=== PATIENT | female | born 1930 | race Caucasian/White ===

== ENCOUNTER 2017-09-24 12:19 | Emergency (ER) | payer MEDICARE, OTHER ==
[2017-09-24 12:24] VITALS: RESP 16
--- NOTE | 2017-09-24 12:32 | ED ---
General Adult HPI - General Chief complaint: Fall Stated complaint: Fall Time Seen by Provider: 09/24/17 12:26 Source: patient, EMS, RN notes reviewed Mode of arrival: EMS Limitations: no limitations - History of Present Illness Initial comments: Patient is a pleasant 87-year-old female presenting to the emergency department following a fall. Patient states a friend was trying to hug her and she did not want to be hug. Patient backed up and fell backwards. Patient believes she may have landed on her back however has no back pain. Patient complains of discomfort mostly of the left wrist and somewhat of the left upper arm. Discomfort increases with movement. No chest pain or dyspnea. No head injury or loss of consciousness. No neck or back pain. Patient was able to walk. - Related Data Home Medications Medication Instructions Recorded Confirmed Aspirin 81 mg PO DAILY@0900 01/30/14 09/24/17 ALPRAZolam [Xanax] 0.5 mg PO HS@209912/03/14 09/24/17 Acetaminophen Tab [Tylenol] 650 mg PO BID 12/03/14 09/24/17 Bisacodyl [Dulcolax] 20 mg PO HS@209912/03/14 09/24/17 Citalopram Hydrobromide [CeleXA] 20 mg PO DAILY@89912/03/14 09/24/17 Atorvastatin [Lipitor] 40 mg PO HS@209904/24/15 09/24/17 Cholecalciferol [Vitamin D3] 1,000 unit PO DAILY@89904/24/15 09/24/17 HYDROcodone/APAP 5-325MG [[place] 0.5 tab PO DAILY@89904/24/15 09/24/17 5-325] Isosorbide Mononitrate ER [Imdur] 30 mg PO DAILY@89904/24/15 09/24/17 Levothyroxine Sodium [Synthroid] 50 mcg PO PERALTA@89904/24/15 09/24/17 ALPRAZolam [Xanax] 0.25 mg PO DAILY PRN 09/24/17 09/24/17 Acetaminophen [Tylenol] 650 mg PO Q4H PRN 09/24/17 09/24/17 Ferrous Sulfate [Iron] 325 mg PO DAILY@89909/24/17 09/24/17 Furosemide [Lasix] 40 mg PO MOWEFR@0909/24/17 09/24/17 Gabapentin [Neurontin] 600 mg PO HS@209909/24/17 09/24/17 HYDROcodone/APAP 5-325MG [[place] 1 tab PO Q8H PRN 09/24/17 09/24/17 5-325] Ipratropium-Albuterol Nebulize 3 ml INHALATION RT-Q4H PRN 09/24/17 09/24/17 [Duoneb 0.5 mg-3 mg/3 ml Soln] Levothyroxine Sodium [Synthroid] 100 mcg PO MOTUWETHFRSA@0909/24/17 09/24/17 Losartan Potassium [Cozaar] 100 mg PO DAILY@89909/24/17 09/24/17 Magnesium Hydroxide [Milk of 2,400 mg PO HS PRN 09/24/17 09/24/17 Magnesia] Memantine HCl [Namenda Xr] 14 mg PO DAILY@0909/24/17 09/24/17 Methyl Salicylate/Menthol 1 patch TOPICAL DAILY@89909/24/17 09/24/17 [Salonpas Patch] Metoprolol Tartrate [Lopressor] 25 mg PO BID@0900,209909/24/17 09/24/17 Nitroglycerin Sl Tabs [Nitrostat] 0.4 mg SUBLINGUAL Q5M PRN 09/24/17 09/24/17 Omeprazole [PriLOSEC] 20 mg PO DAILY@0909/24/17 09/24/17 Oseltamivir Phosphate [Tamiflu] 30 mg PO DIRECTED 09/24/17 09/24/17 Polyethylene Glycol 3350 [Miralax] 17 gm PO DAILY@0909/24/17 09/24/17 Vit C/E/Zn/Coppr/Lutein/Zeaxan 1 cap PO DAILY@0909/24/17 09/24/17 [Preservision Areds 2 Softgel] amLODIPine [Norvasc] 5 mg PO HS@2100 09/24/17 09/24/17 Previous Rx's Medication Instructions Recorded Ipratropium-Albuterol Nebulize 3 ml INHALATION RT-QID ampul.neb 12/08/14 [Duoneb 0.5 mg-3 mg/3 ml Soln] Allergies Allergy/AdvReac Type Severity Reaction Status Date / Time zolpidem tartrate Allergy Unknown Confusion Verified 09/24/17 12:49 [From Ambien] celecoxib [From Celebrex] Allergy Rash/Hives Verified 09/24/17 12:49 estrogens, conjugated Allergy Unknown Verified 09/24/17 12:49 [From Premarin] valdecoxib Allergy Unknown Verified 09/24/17 12:49 Review of Systems ROS Statement: Those systems with pertinent positive or pertinent negative responses have been documented in the HPI. ROS Other: All systems not noted in ROS Statement are negative. Constitutional: Denies: fever Eyes: Denies: eye pain ENT: Denies: ear pain Respiratory: Denies: cough Cardiovascular: Denies: chest pain Endocrine: Denies: fatigue Gastrointestinal: Denies: abdominal pain Genitourinary: Denies: dysuria Musculoskeletal: Denies: back pain Skin: Denies: rash Neurological: Denies: weakness Past Medical History Past Medical History: Coronary Artery Disease (CAD), Chest Pain / Angina, Heart Failure, COPD, CVA/TIA, GERD/Reflux, Hyperlipidemia, Hypertension, Myocardial Infarction ([place]), Pneumonia, Sleep Apnea/CPAP/BIPAP, Thyroid Disorder, Vascular Disorder Additional Past Medical History / Comment(s): CVA 2010 POSTMENOPAUSAL GLASSES UPPER DENTURES SHORTNESS OF BREATH ddd, vit d-deficiency.ischemic cardiomyopathy , hypothyroidism constipation CK D vitamin D deficiency obstructive sleep apnea noncompliant to medication ischemic cardiomyopathy LVH TIA 2010 CVA Last Myocardial Infarction Date:: 2011? 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 Past Anesthesia/Blood Transfusion Reactions: No Reported Reaction Past Psychological History: Anxiety Smoking Status: Former smoker Past Alcohol Use History: Rare Past Drug Use History: None Reported - Past Family History Father Family Medical History: Cancer (Father at age of 60 from throat cancer), Osteoarthritis (OA) Additional Family Medical History / Comment(s): at age 62 throat ca Mother Family Medical History: Coronary Artery Disease (CAD) (Mother at age of 92 from myocardial infarction), Myocardial Infarction ([place]) Additional Family Medical History / Comment(s): mom at age 92 mi Brother(s) Family Medical History: CVA/TIA (Patient has 3 brothers one of them was diagnosed with a CVA.) Sister(s) Family Medical History: No Reported History (Patient had 3 sisters.) Daughter(s) Family Medical History: Vascular Disorder (Patient has a living daughter who survived a ruptured aneurysm of the brain, with subarachnoid hemorrhage.) General Exam Limitations: no limitations General appearance: alert, in no apparent distress Head exam: Present: atraumatic, normocephalic Eye exam: Present: normal appearance, PERRL ENT exam: Present: normal oropharynx Neck exam: Present: normal inspection. Absent: tenderness Respiratory exam: Present: normal lung sounds bilaterally Cardiovascular Exam: Present: regular rate, normal rhythm Expanded Peripheral pulses: 2+: Radial (L) GI/Abdominal exam: Present: soft. Absent: tenderness Extremities exam: Present: tenderness (tenderness and deformity left wrist. Mild tenderness left humerus region.) Back exam: Present: normal inspection. Absent: tenderness, vertebral tenderness Neurological exam: Present: alert, CN II-XII intact. Absent: motor sensory deficit Expanded Motor strength exam: RLE: 5, LLE: 5 Psychiatric exam: Present: normal affect, normal mood Skin exam: Absent: rash Course Vital Signs 09/24/17 12:21 Temperature 97.4 F L Pulse Rate 53 L Respiratory 16 Rate Blood Pressure 190/78 O2 Sat by Pulse 95 Oximetry Procedures - Orthopedic Splinting/Casting Injury #1 Side: left Upper Extremity Injury Location: short arm, wrist Upper Extremity Immobilizer: volar splint Additional Comments: examined postplacement with acceptable alignment and neurovascular intact. Medical Decision Making - Radiology Data Radiology results: image reviewed (Left humerus x-ray shows no acute process. Left wrist x-ray shows distal radius and ulnar fracture.) Disposition Clinical Impression: Fall, Closed fracture distal radius and ulna Disposition: HOME SELF-CARE Condition: Stable Instructions: Arm Fracture in Adults (ED) Additional Instructions: please follow-up with orthopedics in the next couple days for recheck and casting. Return for arm problems, other areas of injury or concern or worsening symptoms.ice to affected area. Referrals: Amber Reed MD [Primary Care Provider] - 1-2 days Jaylen Barroso MD [STAFF PHYSICIAN] - 1-2 days Time of Disposition: 13:40
--- NOTE | 2017-09-24 13:13 | XR ---
EXAMINATION TYPE: XR humerus LT DATE OF EXAM: 09/24/2017 COMPARISON: NONE HISTORY: Pain TECHNIQUE: 2 views FINDINGS: I see no fracture nor dislocation. Elbow joint and shoulder joint appear intact. IMPRESSION: Negative left humerus exam.
--- NOTE | 2017-09-24 13:16 | XR ---
EXAMINATION TYPE: XR wrist complete LT DATE OF EXAM: 09/24/2017 COMPARISON: NONE HISTORY: Pain. Fall. TECHNIQUE: 3 views FINDINGS: There is impacted comminuted transverse fracture of the distal radial metaphysis. There is also nondisplaced fracture ulnar styloid process. There is no dislocation. There is moderate spurring at the first carpometacarpal joint. IMPRESSION: Fractures of distal radius and ulna.
[2017-09-24] MEDS ORDERED: HYDROcodone/APAP 5-325MG 1 EACH TAB PO STA (13:38)
[2017-09-24 13:45] VITALS: BP 160/73; PULSE 56; TEMP 98
== END 2017-09-24 14:02 | disposition home or self-care (01) ==
LOC: EC 12:19
DX: S52.502A Unspecified fracture of the lower end of left radius, initial encounter for closed fracture (principal); S52.602A Unspecified fracture of lower end of left ulna, initial encounter for closed fracture; I25.10 Atherosclerotic heart disease of native coronary artery without angina pectoris; I11.0 Hypertensive heart disease with heart failure; I50.9 Heart failure, unspecified; E78.5 Hyperlipidemia, unspecified; G47.30 Sleep apnea, unspecified; E07.9 Disorder of thyroid, unspecified; I25.2 Old myocardial infarction; I25.5 Ischemic cardiomyopathy; F41.9 Anxiety disorder, unspecified; Z86.73 Personal history of transient ischemic attack (TIA), and cerebral infarction without residual deficits; Z87.891 Personal history of nicotine dependence; Z79.82 Long term (current) use of aspirin; Z79.899 Other long term (current) drug therapy; Z88.6 Allergy status to analgesic agent; Z88.8 Allergy status to other drugs, medicaments and biological substances; W18.39XA Other fall on same level, initial encounter; Y92.009 Unspecified place in unspecified non-institutional (private) residence as the place of occurrence of the external cause
CPT/HCPCS: 29125; 99283

== ENCOUNTER 2017-12-12 04:28 | Emergency (ER) | payer MEDICARE, OTHER ==
[2017-12-12 04:37] VITALS: TEMP 98.3
[2017-12-12] MEDS ORDERED: MORPHINE SULFATE/PF 10MG/10ML VL IVP STA (04:37)
--- NOTE | 2017-12-12 04:40 | ED ---
General Adult HPI - General Chief complaint: Fall Stated complaint: Fall-shoulder pain Time Seen by Provider: 12/12/17 04:31 Source: patient, EMS, RN notes reviewed, old records reviewed Mode of arrival: EMS - History of Present Illness Initial comments: 87-year-old female presents status post fall. Patient is presented from the halfway, according to staff she rolled out of bed falling onto her left side. She is complaining of left shoulder and left wrist pain. No significant head trauma noted, patient denies loss consciousness although she does have history of dementia. Denies any chest pain or abdominal pain. Patient is not on any anticoagulation. Denies current head or neck pain. - Related Data Home Medications Medication Instructions Recorded Confirmed Aspirin 81 mg PO DAILY@89901/30/14 09/24/17 ALPRAZolam [Xanax] 0.5 mg PO HS@209912/03/14 09/24/17 Acetaminophen Tab [Tylenol] 650 mg PO BID 12/03/14 09/24/17 Bisacodyl [Dulcolax] 20 mg PO HS@209912/03/14 09/24/17 Citalopram Hydrobromide [CeleXA] 20 mg PO DAILY@89912/03/14 09/24/17 Atorvastatin [Lipitor] 40 mg PO HS@209904/24/15 09/24/17 Cholecalciferol [Vitamin D3] 1,000 unit PO DAILY@89904/24/15 09/24/17 HYDROcodone/APAP 5-325MG [[place] 0.5 tab PO DAILY@89904/24/15 09/24/17 5-325] Isosorbide Mononitrate ER [Imdur] 30 mg PO DAILY@89904/24/15 09/24/17 Levothyroxine Sodium [Synthroid] 50 mcg PO PERALTA@89904/24/15 09/24/17 ALPRAZolam [Xanax] 0.25 mg PO DAILY PRN 09/24/17 09/24/17 Acetaminophen [Tylenol] 650 mg PO Q4H PRN 09/24/17 09/24/17 Ferrous Sulfate [Iron] 325 mg PO DAILY@89909/24/17 09/24/17 Furosemide [Lasix] 40 mg PO MOWEFR@89909/24/17 09/24/17 Gabapentin [Neurontin] 600 mg PO HS@209909/24/17 09/24/17 HYDROcodone/APAP 5-325MG [[place] 1 tab PO Q8H PRN 09/24/17 09/24/17 5-325] Ipratropium-Albuterol Nebulize 3 ml INHALATION RT-Q4H PRN 09/24/17 09/24/17 [Duoneb 0.5 mg-3 mg/3 ml Soln] Levothyroxine Sodium [Synthroid] 100 mcg PO MOTUWETHFRSA@0909/24/17 09/24/17 Losartan Potassium [Cozaar] 100 mg PO DAILY@0909/24/17 09/24/17 Magnesium Hydroxide [Milk of 2,400 mg PO HS PRN 09/24/17 09/24/17 Magnesia] Memantine HCl [Namenda Xr] 14 mg PO DAILY@0909/24/17 09/24/17 Methyl Salicylate/Menthol 1 patch TOPICAL DAILY@89909/24/17 09/24/17 [Salonpas Patch] Metoprolol Tartrate [Lopressor] 25 mg PO BID@0900,209909/24/17 09/24/17 Nitroglycerin Sl Tabs [Nitrostat] 0.4 mg SUBLINGUAL Q5M PRN 09/24/17 09/24/17 Omeprazole [PriLOSEC] 20 mg PO DAILY@0909/24/17 09/24/17 Oseltamivir Phosphate [Tamiflu] 30 mg PO DIRECTED 09/24/17 09/24/17 Polyethylene Glycol 3350 [Miralax] 17 gm PO DAILY@0909/24/17 09/24/17 Vit C/E/Zn/Coppr/Lutein/Zeaxan 1 cap PO DAILY@0900 09/24/17 09/24/17 [Preservision Areds 2 Softgel] amLODIPine [Norvasc] 5 mg PO HS@209909/24/17 09/24/17 Previous Rx's Medication Instructions Recorded Ipratropium-Albuterol Nebulize 3 ml INHALATION RT-QID ampul.neb 12/08/14 [Duoneb 0.5 mg-3 mg/3 ml Soln] HYDROcodone/APAP 5-325MG [[place] 1 tab PO Q6HR PRN #24 tab 12/12/17 5-325] Allergies Allergy/AdvReac Type Severity Reaction Status Date / Time zolpidem tartrate Allergy Unknown Confusion Verified 09/24/17 12:49 [From Ambien] celecoxib [From Celebrex] Allergy Rash/Hives Verified 09/24/17 12:49 estrogens, conjugated Allergy Unknown Verified 09/24/17 12:49 [From Premarin] valdecoxib Allergy Unknown Verified 09/24/17 12:49 Review of Systems ROS Statement: Those systems with pertinent positive or pertinent negative responses have been documented in the HPI. ROS Other: All systems not noted in ROS Statement are negative. Past Medical History Past Medical History: Coronary Artery Disease (CAD), Chest Pain / Angina, Heart Failure, COPD, CVA/TIA, GERD/Reflux, Hyperlipidemia, Hypertension, Myocardial Infarction ([place]), Pneumonia, Sleep Apnea/CPAP/BIPAP, Thyroid Disorder, Vascular Disorder Additional Past Medical History / Comment(s): CVA 2010 POSTMENOPAUSAL GLASSES UPPER DENTURES SHORTNESS OF BREATH ddd, vit d-deficiency.ischemic cardiomyopathy , hypothyroidism constipation CK D vitamin D deficiency obstructive sleep apnea noncompliant to medication ischemic cardiomyopathy LVH TIA 2010 CVA Last Myocardial Infarction Date:: 2011? 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 Past Anesthesia/Blood Transfusion Reactions: No Reported Reaction Past Psychological History: Anxiety Smoking Status: Former smoker Past Alcohol Use History: Rare Past Drug Use History: None Reported - Past Family History Father Family Medical History: Cancer (Father at age of 60 from throat cancer), Osteoarthritis (OA) Additional Family Medical History / Comment(s): at age 62 throat ca Mother Family Medical History: Coronary Artery Disease (CAD) (Mother at age of 92 from myocardial infarction), Myocardial Infarction ([place]) Additional Family Medical History / Comment(s): mom at age 92 mi Brother(s) Family Medical History: CVA/TIA (Patient has 3 brothers one of them was diagnosed with a CVA.) Sister(s) Family Medical History: No Reported History (Patient had 3 sisters.) Daughter(s) Family Medical History: Vascular Disorder (Patient has a living daughter who survived a ruptured aneurysm of the brain, with subarachnoid hemorrhage.) General Exam General appearance: alert, in no apparent distress Head exam: Present: atraumatic, normocephalic Eye exam: Present: normal appearance, PERRL ENT exam: Present: normal exam Neck exam: Present: normal inspection, full ROM. Absent: tenderness Respiratory exam: Present: normal lung sounds bilaterally. Absent: respiratory distress Cardiovascular Exam: Present: regular rate, normal rhythm GI/Abdominal exam: Present: soft, distended. Absent: tenderness, guarding Extremities exam: Present: normal capillary refill, joint swelling (Left wrist, swelling and bony tenderness). Absent: pedal edema Neurological exam: Present: alert. Absent: motor sensory deficit Skin exam: Present: warm, dry, intact. Absent: cyanosis, diaphoretic Course Vital Signs 12/12/17 12/12/17 12/12/17 04:30 05:18 05:30 Temperature 98.3 F Pulse Rate 80 80 80 Respiratory 16 18 16 Rate Blood Pressure 169/55 182/76 O2 Sat by Pulse 96 96 96 Oximetry 12/12/17 12/12/17 05:46 05:59 Temperature Pulse Rate 77 77 Respiratory 19 Rate Blood Pressure 135/62 O2 Sat by Pulse 95 Oximetry Procedures - Orthopedic Fracture Reduction Fracture #1 Consent Obtained: written consent Time Out Performed: Yes Side: left Fracture Reduction Location: radius, ulna Analgesia: procedural sedation Technique: direct manipulation Post Reduction X-rays Demonstrate: acceptable reduction Post-Reduction Neuro Exam: intact Post-Reduction Vascular Exam: intact Splint Applied: Yes (OCL cock up wrist splint) Patient Tolerated Procedure: well, no complications - Orthopedic Joint Reduction Joint #1 Consent Obtained: written consent Time Out Performed: Yes Side: left Joint Reduction Location: shoulder Analgesia: procedural sedation Shoulder Technique Used (if applicable): external rotation Post-Reduction Neuro Exam: intact Post-Reduction Vascular Exam: intact Post Reduction X-Ray Obtained: Yes Post Reduction X-Ray Results: reduced Splint Applied: Yes (Left arm sling) Patient Tolerated Procedure: well, no complications - Procedural Sedation Procedural Sedation Start Time: 05:31 Procedural Sedation Stop Time: 05:50 Indications: fracture/dislocation reduction ASA Class: III Mallampati Airway Score: 2 Preparation: mirror installer applied, pulse oximeter, capnometry used, supplemental O2 applied, suction/airway equipment at bedside IV Propofol Dose (mgs): 40 Complications: none Patient Tolerated Procedure: well Medical Decision Making - Medical Decision Making 87-year-old female presenting after falling out of bed with left wrist and left shoulder pain. X-rays are obtained of chest and pelvis, these are negative for acute bony abnormality. CT the head is negative for intracranial hemorrhage or mass effect, CT cervical spine negative for fracture or subluxation. X-ray of the shoulder shows comminuted impacted fracture of the greater tuberosity with anterior dislocation, x-ray of the wrist shows impacted radial fracture. Under conscious sedation, left shoulder is reduced, and left wrist is reduced with direct manipulation. Patient tolerates this procedure very well. She is placed in a wrist splint and arm sling. Patient currently resides at the halfway, she will be discharged with outpatient orthopedic follow-up. She is previously seen Dr. Barroso. Disposition Clinical Impression: Shoulder dislocation, Distal radius fracture, Greater tuberosity of humerus fracture Disposition: HOME SELF-CARE Condition: Fair Instructions: Fall Prevention for Older Adults (ED), Shoulder Dislocation (ED) , Proximal Humerus Fracture (ED), Wrist Fracture in Adults (ED) Prescriptions: HYDROcodone/APAP 5-325MG [[place] 5-325] 1 tab PO Q6HR PRN #24 tab PRN Reason: Pain Referrals: Amber Reed MD [Primary Care Provider] - 1-2 days Time of Disposition: 06:16
--- NOTE | 2017-12-12 05:07 | CT ---
EXAM: CT Head Without Intravenous Contrast CLINICAL HISTORY: [email or web address] CT Reason: fall TECHNIQUE: Axial computed tomography images of the head/brain without intravenous contrast. CTDI is 57.40 mGy and DLP is 926.50 mGy-cm. This CT exam was performed using one or more of the following dose reduction techniques: automated exposure control, adjustment of the mA and/or kV according to patient size, and/or use of iterative reconstruction technique. COMPARISON: 01/19/15 FINDINGS: Brain: Chronic small vessel ischemic changes. No hemorrhage. Ventricles: Unremarkable. No ventriculomegaly. Bones/joints: Unremarkable. No acute fracture. Soft tissues: Unremarkable. Sinuses: Unremarkable as visualized. No acute sinusitis. Mastoid air cells: Unremarkable as visualized. No mastoid effusion. Other findings: Generalized atrophy. IMPRESSION: No acute findings. EXAM: CT Cervical Spine Without Intravenous Contrast CLINICAL HISTORY: ITS.[email or web address] CT Reason: fall TECHNIQUE: Axial computed tomography images of the cervical spine without intravenous contrast. CTDI is 14.60 mGy and DLP is 321.80 mGy-cm. This CT exam was performed using one or more of the following dose reduction techniques: automated exposure control, adjustment of the mA and/or kV according to patient size, and/or use of iterative reconstruction technique. COMPARISON: No relevant prior studies available. FINDINGS: Vertebrae: Straightening of the cervical spine likely on the basis of spondylotic changes. No acute fracture. Discs/spinal canal/neural foramina: Disc height loss and posterior disc spur complex at C3-4, C4-5, C5-6, and C6-7. No spinal canal stenosis. Soft tissues: Unremarkable. Lung apices: Unremarkable as visualized. Other findings: IMPRESSION: No acute findings. Multilevel spondylotic changes noted.
--- NOTE | 2017-12-12 05:22 | XR ---
EXAM: XR Left Wrist Complete, 3 or More Views CLINICAL HISTORY: [email or web address] XR Reason: Pain TECHNIQUE: Frontal, lateral and oblique views of the left wrist. COMPARISON: 09/24/17 FINDINGS: Bones/joints: Impacted fracture of the distal radius. Fracture of the ulnar styloid process with 3 mm displacement radially. Diffuse osteopenia noted. Diffuse soft tissue swelling noted about the wrist. No dislocation. Soft tissues: See above. IMPRESSION: Fractures of the distal radius and ulna. Diffuse soft tissue swelling.
--- NOTE | 2017-12-12 05:24 | XR ---
EXAM: XR Pelvis, 1 or 2 Views CLINICAL HISTORY: [email or web address] XR Reason: Pain TECHNIQUE: Frontal view of the pelvis. COMPARISON: No relevant prior studies available. FINDINGS: Bones/joints: Degenerative spurring noted in the pubic symphysis. Subchondral sclerotic changes seen in the anteroinferior right SI joint. No acute fracture. No dislocation. Soft tissues: Unremarkable. Vasculature: Diffuse vascular calcifications noted. Gastrointestinal tract: Fecal stasis. No dilation. IMPRESSION: No evidence of fracture or subluxation.
--- NOTE | 2017-12-12 05:26 | XR ---
EXAM: XR Left Shoulder Complete, 2 or More Views CLINICAL HISTORY: [email or web address] XR Reason: Pain TECHNIQUE: Two or more views of the left shoulder. COMPARISON: 09/24/17 FINDINGS: Bones/joints: Anterior dislocation of the humeral head. Comminuted displaced fracture of the greater tuberosity which may be impacted on the inferior glenoid. Soft tissues: Unremarkable. IMPRESSION: Anterior dislocation of the humeral head. Comminuted displaced fracture of the greater tuberosity which appears impacted on the inferior glenoid.
--- NOTE | 2017-12-12 05:27 | XR ---
EXAM: XR Chest, 1 View CLINICAL HISTORY: [email or web address] XR Reason: Pain TECHNIQUE: Frontal view of the chest. COMPARISON: 04/24/15 FINDINGS: Lungs: Prominent diffuse interstitial markings similar to prior. No lobar consolidation or pulmonary edema. Pleural space: Unremarkable. No pneumothorax. Heart: Unremarkable. No cardiomegaly. Mediastinum: Unremarkable. Bones/joints: Unremarkable. Other findings: Mild cardio megaly. IMPRESSION: No acute cardiac pulmonary process. COPD changes noted. Mild cardio megaly.
[2017-12-12 05:49] VITALS: PULSE 77
[2017-12-12] MEDS ORDERED: PROPOFOL 10 MG/ML 20 ML VIAL IV STA (05:49)
--- NOTE | 2017-12-12 05:59 | XR ---
EXAM: XR Left Shoulder Complete, 2 or More Views CLINICAL HISTORY: [email or web address] XR Reason: Post Reduction TECHNIQUE: Two or more views of the left shoulder. COMPARISON: 12/12/17 FINDINGS: Successful reduction of the left glenohumeral joint. Comminuted displaced greater tuberosity fracture redemonstrated. IMPRESSION: Successful reduction of glenohumeral joint. Greater tuberosity fracture noted.
--- NOTE | 2017-12-12 06:07 | XR ---
EXAM: XR Left Wrist Complete, 3 or More Views CLINICAL HISTORY: [email or web address] XR Reason: Pain TECHNIQUE: Frontal, lateral and oblique views of the left wrist. COMPARISON: 12/12/17 FINDINGS: Status post reduction of distal radial fracture. Mild improved alignment demonstrated. Stable appearance of displaced ulnar styloid process fracture. Overlying splint noted. IMPRESSION: Status post reduction of impacted distal radial fracture with mild improved alignment. Stable ulnar styloid process fracture.
[2017-12-12 06:17] VITALS: BP 111/63; RESP 16
== END 2017-12-12 06:40 | disposition home or self-care (01) ==
LOC: EC 04:28
DX: S52.502A Unspecified fracture of the lower end of left radius, initial encounter for closed fracture (principal); S42.252A Displaced fracture of greater tuberosity of left humerus, initial encounter for closed fracture; S43.005A Unspecified dislocation of left shoulder joint, initial encounter; I11.0 Hypertensive heart disease with heart failure; I50.9 Heart failure, unspecified; I25.119 Atherosclerotic heart disease of native coronary artery with unspecified angina pectoris; K21.9 Gastro-esophageal reflux disease without esophagitis; E78.5 Hyperlipidemia, unspecified; I25.2 Old myocardial infarction; G47.30 Sleep apnea, unspecified; Z99.89 Dependence on other enabling machines and devices; E03.9 Hypothyroidism, unspecified; F41.9 Anxiety disorder, unspecified; Z87.891 Personal history of nicotine dependence; Z86.73 Personal history of transient ischemic attack (TIA), and cerebral infarction without residual deficits; Z79.82 Long term (current) use of aspirin; Z79.891 Long term (current) use of opiate analgesic; Z79.899 Other long term (current) drug therapy; Z88.6 Allergy status to analgesic agent; Z88.8 Allergy status to other drugs, medicaments and biological substances; W06.XXXA Fall from bed, initial encounter; Y92.009 Unspecified place in unspecified non-institutional (private) residence as the place of occurrence of the external cause
CPT/HCPCS: 72170; 73030; 73020; 73100; 71045; 72125; 70450; 99284; 23650; 25605; 99152; 96374; J2704; J2270

== ENCOUNTER 2017-12-19 15:16 | Inpatient (IN) | payer MEDICARE, OTHER ==
[2017-12-19 15:21] LABS: Glucose,Whole Blood 104 mg/dL (75-99)
[2017-12-19] MEDS ORDERED: SODIUM CHLORIDE 0.9% 1,000 ML IV ONE (15:55)
[2017-12-19 16:40] LABS: Albumin 2.9 g/dL (3.5-5.0); Calcium 8.5 mg/dL (8.4-10.2); Potassium 4.5 mmol/L (3.5-5.1); Total Bilirubin 0.6 mg/dL (0.2-1.3); Total Protein 5.4 g/dL (6.3-8.2)
[2017-12-19 16:42] LABS: Partial Thromboplastin Time 25.3 sec (22.0-30.0)
[2017-12-19 16:46] LABS: Creatine Kinase 259 U/L (30-135)
[2017-12-19 16:58] LABS: Troponin I <0.012 ng/mL (0.000-0.034)
[2017-12-19 17:07] LABS: HCT 28.3 % (34.0-46.0); HGB 9.1 gm/dL (11.4-16.0); MCH 30.8 pg (25.0-35.0); MCHC 32.2 g/dL (31.0-37.0); MCV 95.7 fL (80.0-100.0); Mean Platelet Volume 7.4; Platelet Count 349 k/uL (150-450); RBC 2.95 m/uL (3.80-5.40); WBC 10.2 k/uL (3.8-10.6)
[2017-12-19 17:08] LABS: Amorphous Sediment,Urine Occasional /hpf; Appearance,Urine Turbid (Clear); Bacteria,Urine Occasional /hpf; Bilirubin,Urine Negative (Negative); Blood,Urine Negative (Negative); Color,Urine Yellow; Glucose,Urine (UA) Negative (Negative); Hyaline Casts,Urine 167 /lpf (0-2); Ketones,Urine Negative (Negative); Leukocyte Esterase,Urine Large (Negative); Mucus,Urine Rare /hpf; Nitrite,Urine Negative (Negative); Protein,Urine Trace (Negative); RBC,Urine 24 /hpf (0-5); Specific Gravity,Urine 1.022 (1.001-1.035); Squamous Epithelial Cell,Urine 68 /hpf (0-4); WBC,Urine >182 /hpf (0-5)
--- NOTE | 2017-12-19 17:18 | XR ---
EXAMINATION TYPE: XR chest 1V portable DATE OF EXAM: 12/19/2017 COMPARISON: 12/12/2017 HISTORY: Altered mental status TECHNIQUE: Single frontal view of the chest is obtained. FINDINGS: There is slight blunting of left costophrenic angle. There is no heart failure. Thoracic a antonio is atheromatous. There is mild linear density at the right lung base. IMPRESSION: Mild pleural reaction and subsegmental atelectasis at the lung bases. No gross heart frank lure. There is clearing of the pulmonary congestion compared to old exam.
[2017-12-19 17:22] LABS: Lymphocytes # (M) 1.53 k/uL (1.0-4.8); Neutrophils # (M) 8.57 k/uL (1.3-7.7); Neutrophils % (M) 84 %; Nucleated Red Blood Cells 0 /100 WBC (0-0); Total Cells Counted 100
[2017-12-19] MEDS ORDERED: SODIUM CHLORIDE 0.9% 1,000 ML IV STA (19:14)
[2017-12-19] MEDS ORDERED: cefTRIAXone 2,000 MG in SODIUM CHLORIDE 0.9% 100 ML IVPB STA (19:28)
[2017-12-19] MEDS ORDERED: cefTRIAXone IN SWFI 2,000 MG/20 ML SYRINGE IVP STA (19:42)
--- NOTE | 2017-12-19 21:16 | CT ---
EXAMINATION TYPE: CT brain wo con DATE OF EXAM: 12/19/2017 COMPARISON: 12/12/2017. FINDINGS: There is cerebral cortical atrophy. There is patchy hypodensity in the periventricular white matter. There is no mass effect nor midline shift. There is no sign of intracranial hemorrhage. The calvariu m is intact. There is some mucosal thickening in the posterior sphenoid sinus. HISTORY: Altered mental status. CT DLP: 1112 mGycm Automated exposure control for dose reduction was used.: IMPRESSION: CEREBRAL ATROPHY AND CHRONIC SMALL VESSEL ISCHEMIA. SPHENOID SINUSITIS. NO CHANGE COMPARED TO LAST EX AM.
--- NOTE | 2017-12-19 21:45 | ED ---
Altered Mental Status HPI - General Chief Complaint: Altered Mental Status Stated Complaint: Altered mental status Time Seen by Provider: 12/19/17 15:30 Source: patient Mode of arrival: EMS Limitations: no limitations - History of Present Illness Initial Comments: 89 years O female comes from alf family noticed that oxygen level was quite low and they noticed that she has a change in mental status she was confused she does have a history of bladder infections there was wondering if she got bladder infection again and is oral intake has been very poor family said she hasn't had anything to eat for the last 2 days, in the Room she is awake she is alert she is talking though EMS said there was a major confusion she denies any headaches no chest pain or shortness of breath no abdominal pain no frequency urgency dysuria no symptoms of TIA or CVA she is complaining about being very tired - Related Data Home Medications Medication Instructions Recorded Confirmed Aspirin 81 mg PO DAILY@89901/30/14 12/19/17 ALPRAZolam [Xanax] 0.5 mg PO HS@209912/03/14 12/19/17 Bisacodyl [Dulcolax] 20 mg PO HS@209912/03/14 12/19/17 Citalopram Hydrobromide [CeleXA] 20 mg PO DAILY@89912/03/14 12/19/17 Atorvastatin [Lipitor] 40 mg PO HS@209904/24/15 12/19/17 Cholecalciferol [Vitamin D3] 1,000 unit PO DAILY@89904/24/15 12/19/17 Isosorbide Mononitrate ER [Imdur] 30 mg PO DAILY@89904/24/15 12/19/17 Levothyroxine Sodium [Synthroid] 50 mcg PO PERALTA@89904/24/15 12/19/17 Acetaminophen [Tylenol] 650 mg PO Q4H PRN 09/24/17 12/19/17 Ferrous Sulfate [Iron] 325 mg PO DAILY@89909/24/17 12/19/17 Furosemide [Lasix] 40 mg PO MOWEFR@89909/24/17 12/19/17 Gabapentin [Neurontin] 600 mg PO HS@209909/24/17 12/19/17 Ipratropium-Albuterol Nebulize 3 ml INHALATION RT-Q4H PRN 09/24/17 12/19/17 [Duoneb 0.5 mg-3 mg/3 ml Soln] Levothyroxine Sodium [Synthroid] 100 mcg PO MOTUWETHFRSA@0609/24/17 12/19/17 Losartan Potassium [Cozaar] 100 mg PO DAILY@89909/24/17 12/19/17 Magnesium Hydroxide [Milk of 2,400 mg PO HS PRN 09/24/17 12/19/17 Magnesia] Memantine HCl [Namenda Xr] 14 mg PO DAILY@89909/24/17 12/19/17 Methyl Salicylate/Menthol 1 patch TOPICAL DAILY@89909/24/17 12/19/17 [Salonpas Patch] Metoprolol Tartrate [Lopressor] 25 mg PO BID@09,209909/24/17 12/19/17 Nitroglycerin Sl Tabs [Nitrostat] 0.4 mg SUBLINGUAL Q5M PRN 09/24/17 12/19/17 Omeprazole [PriLOSEC] 20 mg PO DAILY@89909/24/17 12/19/17 Polyethylene Glycol 3350 [Miralax] 17 gm PO DAILY@89909/24/17 12/19/17 Vit C/E/Zn/Coppr/Lutein/Zeaxan 1 cap PO DAILY@89909/24/17 12/19/17 [Preservision Areds 2 Softgel] amLODIPine [Norvasc] 5 mg PO HS@209909/24/17 12/19/17 Dimethicone/Zinc Oxide [Inzo Zinc 1 applic TOPICAL Q12H 12/19/17 12/19/17 Oxide Barrier Cream] HYDROcodone/APAP 7.5-325MG [[place] 1 tab PO QID@00,06,,18 PRN 12/19/17 12/19/17 7.5-325] Potassium Chloride ER [K-Dur 10] 10 meq PO MOWEFR@89912/19/17 12/19/17 Previous Rx's Medication Instructions Recorded Ipratropium-Albuterol Nebulize 3 ml INHALATION RT-QID ampul.neb 12/08/14 [Duoneb 0.5 mg-3 mg/3 ml Soln] Allergies Allergy/AdvReac Type Severity Reaction Status Date / Time zolpidem tartrate Allergy Unknown Confusion Verified 12/19/17 15:43 [From Ambien] celecoxib [From Celebrex] Allergy Rash/Hives Verified 12/19/17 15:43 estrogens, conjugated Allergy Unknown Verified 12/19/17 15:43 [From Premarin] valdecoxib Allergy Unknown Verified 12/19/17 15:43 Review of Systems ROS Statement: Those systems with pertinent positive or pertinent negative responses have been documented in the HPI. ROS Other: All systems not noted in ROS Statement are negative. Past Medical History Past Medical History: Coronary Artery Disease (CAD), Chest Pain / Angina, Heart Failure, COPD, CVA/TIA, GERD/Reflux, Hyperlipidemia, Hypertension, Myocardial Infarction (SC), Pneumonia, Sleep Apnea/CPAP/BIPAP, Thyroid Disorder, Vascular Disorder Additional Past Medical History / Comment(s): CVA 2010 POSTMENOPAUSAL GLASSES UPPER DENTURES SHORTNESS OF BREATH ddd, vit d-deficiency.ischemic cardiomyopathy , hypothyroidism constipation CK D vitamin D deficiency obstructive sleep apnea noncompliant to medication ischemic cardiomyopathy LVH TIA 2010 CVA Last Myocardial Infarction Date:: 2011? 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 Past Anesthesia/Blood Transfusion Reactions: No Reported Reaction Past Psychological History: Anxiety Smoking Status: Former smoker Past Alcohol Use History: Rare Past Drug Use History: None Reported - Past Family History Father Family Medical History: Cancer (Father at age of 60 from throat cancer), Osteoarthritis (OA) Additional Family Medical History / Comment(s): at age 62 throat ca Mother Family Medical History: Coronary Artery Disease (CAD) (Mother at age of 92 from myocardial infarction), Myocardial Infarction (SC) Additional Family Medical History / Comment(s): mom at age 92 mi Brother(s) Family Medical History: CVA/TIA (Patient has 3 brothers one of them was diagnosed with a CVA.) Sister(s) Family Medical History: No Reported History (Patient had 3 sisters.) Daughter(s) Family Medical History: Vascular Disorder (Patient has a living daughter who survived a ruptured aneurysm of the brain, with subarachnoid hemorrhage.) General Exam - General Exam Comments Initial Comments: General: The patient is awake and alert, in no distress, and does not appear acutely ill. GCS is 15 Skin: Skin is warm and dry and no rashes or lesions are noted. Eye: Pupils are equal, round and reactive to light, extra-ocular movements are intact; there is normal conjunctiva bilaterally. Ears, nose, mouth and throat: There are moist mucous membranes and no oral lesions. Neck: The neck is supple, there is no tenderness or JVD. Cardiovascular: There is a regular rate and rhythm. No murmur, rub or gallop is appreciated. Respiratory: To auscultation bilateral, crease breath sounds bilateral Gastrointestinal: Soft, non-distended, non-tender abdomen without masses or organomegaly noted. There is no rebound or guarding present. Bowel sounds are unremarkable. Back: There is no tenderness to palpation in the midline. There is no obvious deformity. Musculoskeletal: Left upper extremities and is compliant she had a on fracture , no neuro vascular deficit noticed. Neurological: CN II-XII intact, Cranial nerves III through XII are intact. There are no obvious motor or sensory deficits. Coordination appears grossly intact. Speech is normal. Psychiatric: Cooperative, appropriate mood & affect, normal judgment. Limitations: no limitations Course Vital Signs 12/19/17 12/19/17 12/19/17 15:24 17:01 17:47 Temperature 97.6 F Pulse Rate 64 70 Respiratory 18 18 Rate Blood Pressure 90/52 80/42 101/70 O2 Sat by Pulse 88 L 89 L Oximetry 12/19/17 12/19/17 12/19/17 18:25 19:04 20:12 Temperature Pulse Rate 67 72 74 Respiratory 18 18 18 Rate Blood Pressure 95/48 128/58 125/57 O2 Sat by Pulse 92 L 90 L 90 L Oximetry 12/19/17 20:57 Temperature 99.2 F Pulse Rate 74 Respiratory 18 Rate Blood Pressure 141/61 O2 Sat by Pulse 91 L Oximetry EKG is sinus rhythm with a first-degree AV block ventricular rate is 65 ME interval is 2:30 QRS duration is 76 QT/QTc is 4:30/447 review of this EKG does not reveal any ST elevation or ST depression Patient is reassessed, CBC, INR, troponin are unremarkable creatinine is 1.47 urinalysis is quite significant and considering a change in mental status which is probably because of her cystitis or early sepsis she was started on her Rocephin 2 g IV chest x-ray didn't show any any pneumonia she also had hypertension on arrival they responded well to fluid bolus she looked a lot better in the head CT was normal which confirms sinusitis to will admit her to Dr. Storey's service for urosepsis causing change in mental status Medical Decision Making - Lab Data Result diagrams: 12/19/17 15:48 12/19/17 15:48 Lab Results 12/19/17 12/19/17 12/19/17 Range/Units 15:18 15:48 15:48 WBC 10.2 (3.8-10.6) k/uL RBC 2.95 L (3.80-5.40) m/uL Hgb 9.1 L (11.4-16.0) gm/dL Hct 28.3 L (34.0-46.0) % MCV 95.7 (80.0-100.0) fL MCH 30.8 (25.0-35.0) pg MCHC 32.2 (31.0-37.0) g/dL RDW 13.0 (11.5-15.5) % Plt Count 349 (150-450) k/uL Neutrophils % (Manual) 84 % Lymphocytes % (Manual) 15 % Monocytes % (Manual) 1 % Neutrophils # (Manual) 8.57 H (1.3-7.7) k/uL Lymphocytes # (Manual) 1.53 (1.0-4.8) k/uL Monocytes # (Manual) 0.10 (0-1.0) k/uL Nucleated RBCs 0 (0-0) /100 WBC Manual Slide Review Performed RBC Morphology Normal PT (9.0-12.0) sec INR (<1.2) APTT (22.0-30.0) sec Sodium (137-145) mmol/L Potassium (3.5-5.1) mmol/L Chloride (98-107) mmol/L Carbon Dioxide (22-30) mmol/L Anion Gap mmol/L BUN (7-17) mg/dL Creatinine (0.52-1.04) mg/dL Est GFR (CKD-EPI)AfAm (>60 ml/min/1.73 sqM) Est GFR (CKD-EPI)NonAf (>60 ml/min/1.73 sqM) Glucose (74-99) mg/dL POC Glucose (mg/dL) 104 H (75-99) mg/dL POC Glu Medical Stenographer ID Wendy Coyle Calcium (8.4-10.2) mg/dL Total Bilirubin (0.2-1.3) mg/dL AST (14-36) U/L ALT (9-52) U/L Alkaline Phosphatase (38-126) U/L Total Creatine Kinase 259 H (30-135) U/L CK-MB (CK-2) 7.0 H* (0.0-2.4) ng/mL CK-MB (CK-2) Rel Index 2.7 Troponin I <0.012 (0.000-0.034) ng/mL Total Protein (6.3-8.2) g/dL Albumin (3.5-5.0) g/dL Urine Color Urine Appearance (Clear) Urine pH (5.0-8.0) Ur Specific [place] (1.001-1.035) Urine Protein (Negative) Urine Glucose (UA) (Negative) Urine Ketones (Negative) Urine Blood (Negative) Urine Nitrite (Negative) Urine Bilirubin (Negative) Urine Urobilinogen (<2.0) mg/dL Ur Leukocyte Esterase (Negative) Urine RBC (0-5) /hpf Urine WBC (0-5) /hpf Ur Squamous Epith Cells (0-4) /hpf Amorphous Sediment (None) /hpf Urine Bacteria (None) /hpf Hyaline Casts (0-2) /lpf Urine Mucus (None) /hpf 12/19/17 12/19/17 12/19/17 Range/Units 15:48 15:48 16:46 WBC (3.8-10.6) k/uL RBC (3.80-5.40) m/uL Hgb (11.4-16.0) gm/dL Hct (34.0-46.0) % MCV (80.0-100.0) fL MCH (25.0-35.0) pg MCHC (31.0-37.0) g/dL RDW (11.5-15.5) % Plt Count (150-450) k/uL Neutrophils % (Manual) % Lymphocytes % (Manual) % Monocytes % (Manual) % Neutrophils # (Manual) (1.3-7.7) k/uL Lymphocytes # (Manual) (1.0-4.8) k/uL Monocytes # (Manual) (0-1.0) k/uL Nucleated RBCs (0-0) /100 WBC Manual Slide Review RBC Morphology PT 10.0 (9.0-12.0) sec INR 1.0 (<1.2) APTT 25.3 (22.0-30.0) sec Sodium 135 L (137-145) mmol/L Potassium 4.5 (3.5-5.1) mmol/L Chloride 100 (98-107) mmol/L Carbon Dioxide 25 (22-30) mmol/L Anion Gap 10 mmol/L BUN 50 H (7-17) mg/dL Creatinine 1.47 H (0.52-1.04) mg/dL Est GFR (CKD-EPI)AfAm 36 (>60 ml/min/1.73 sqM) Est GFR (CKD-EPI)NonAf 31 (>60 ml/min/1.73 sqM) Glucose 85 (74-99) mg/dL POC Glucose (mg/dL) (75-99) mg/dL POC Glu Medical Stenographer ID Calcium 8.5 (8.4-10.2) mg/dL Total Bilirubin 0.6 (0.2-1.3) mg/dL AST 32 (14-36) U/L ALT 25 (9-52) U/L Alkaline Phosphatase 65 (38-126) U/L Total Creatine Kinase (30-135) U/L CK-MB (CK-2) (0.0-2.4) ng/mL CK-MB (CK-2) Rel Index Troponin I (0.000-0.034) ng/mL Total Protein 5.4 L (6.3-8.2) g/dL Albumin 2.9 L (3.5-5.0) g/dL Urine Color Yellow Urine Appearance Turbid H (Clear) Urine pH 5.0 (5.0-8.0) Ur Specific [place] 1.022 (1.001-1.035) Urine Protein Trace H (Negative) Urine Glucose (UA) Negative (Negative) Urine Ketones Negative (Negative) Urine Blood Negative (Negative) Urine Nitrite Negative (Negative) Urine Bilirubin Negative (Negative) Urine Urobilinogen 6.0 (<2.0) mg/dL Ur Leukocyte Esterase Large H (Negative) Urine RBC 24 H (0-5) /hpf Urine WBC >182 H (0-5) /hpf Ur Squamous Epith Cells 68 H (0-4) /hpf Amorphous Sediment Occasional H (None) /hpf Urine Bacteria Occasional H (None) /hpf Hyaline Casts 167 H (0-2) /lpf Urine Mucus Rare H (None) /hpf Disposition Clinical Impression: Sepsis Disposition: ADMITTED IP TO THIS HOSP Condition: Good Referrals: Amber Reed MD [Primary Care Provider] - 1-2 days
[2017-12-19] MEDS: HYDROcodone/APAP 7.5-325MG 1 EACH TAB PO PRN (21:46)
[2017-12-19] MEDS ORDERED: NALOXONE 0.4 MG/ML 1 ML VIAL IV PRN (21:46)
[2017-12-19] MEDS ORDERED: ACETAMINOPHEN TAB 325 MG TAB PO PRN (21:50)
[2017-12-19] MEDS ORDERED: MAGNESIUM HYDROXIDE 2,400 MG/10 ML CUP PO PRN (21:50)
[2017-12-19] MEDS ORDERED: IPRATROPIUM-ALBUTEROL 3 ML NEB INHALATION PRN (21:50)
[2017-12-19] MEDS ORDERED: NITROGLYCERIN SL TABS 0.4 MG TAB SUBLINGUAL PRN (21:50)
[2017-12-19] MEDS: SODIUM CHLORIDE 0.9% 1,000 ML IV SCH (22:13)
--- NOTE | 2017-12-19 22:58 | US ---
EXAMINATION TYPE: US abdomen limited DATE OF EXAM: 12/19/2017 COMPARISON: NONE CLINICAL HISTORY: Pain. Pain EXAM MEASUREMENTS: Liver Length: 15.3 cm Gallbladder Wall: Surgically absent cm CBD: 0.26 cm Right Kidney: 8.7 x 4.0 x 2.8 cm Exam limitations due to bowel gas, patient has left broken arm and unable to roll or hold breath. Pancreas: Obscured by bowel gas Liver: Portions scanned appear wnl. Gallbladder: Surgically absent CBD: Obscured by overlying bowel gas Right Kidney: Limited due to bowel gas. IMPRESSION: Cholecystectomy. No dilated ducts. No focal liver defect. No free fluid. No demonstrated abnormality.
[2017-12-19 23:56] VITALS: BMI 26.6
[2017-12-20] MEDS: ZINC OXIDE 20% OINT 28.4 GM TUBE TOPICAL SCH ×3 (02:48→21:41)
[2017-12-20] MEDS: LEVOTHYROXINE 100 MCG TAB PO SCH (06:19)
[2017-12-20] MEDS: HYDROcodone/APAP 7.5-325MG 1 EACH TAB PO PRN (06:20)
[2017-12-20] MEDS: IPRATROPIUM-ALBUTEROL 3 ML NEB INHALATION SCH ×4 (07:22→19:56)
[2017-12-20] MEDS: METOPROLOL TARTRATE 25 MG TAB PO SCH ×2 (08:39→22:36)
[2017-12-20] MEDS: MEMANTINE 5 MG TAB PO SCH ×2 (08:39→22:36)
[2017-12-20] MEDS ORDERED: PANTOPRAZOLE 40 MG TABLET PO SCH (09:00)
[2017-12-20] MEDS ORDERED: FUROSEMIDE 40 MG TAB PO SCH (09:00)
[2017-12-20] MEDS: METHYL SALICYLATE/MENTHOL CREAM 5 OZ TOPICAL SCH (09:33)
[2017-12-20] MEDS: FERROUS SULFATE 325 MG TAB PO SCH (09:33)
[2017-12-20] MEDS: ASPIRIN 81 MG PO SCH (09:33)
[2017-12-20] MEDS: CHOLECALCIFEROL 1,000 UNIT TAB PO SCH (09:33)
[2017-12-20] MEDS: LOSARTAN 50 MG TAB PO SCH (09:33)
[2017-12-20] MEDS: CITALOPRAM HYDROBROMIDE 20 MG TAB PO SCH (09:33)
[2017-12-20] MEDS: ISOSORBIDE MONONITRATE ER 30 MG TAB.ER.24H PO SCH (09:33)
[2017-12-20] MEDS: POTASSIUM CHLORIDE ER 10 MEQ TAB.ER.PRT PO SCH (09:33)
[2017-12-20] MEDS: POLYETHYLENE GLYCOL 3350 17 GM POWD.PACK PO SCH (09:34)
[2017-12-20] MEDS: VIT A,C & E-LUTEIN-MINERALS 1 EACH TAB PO SCH (09:34)
[2017-12-20] MEDS: SODIUM CHLORIDE 0.9% 1,000 ML IV SCH ×2 (09:40→22:40)
[2017-12-20] MEDS ORDERED: HYDROcodone/APAP 7.5-325MG 1 EACH TAB PO PRN ×2 (11:02)
[2017-12-20] MEDS: cefTRIAXone IN SWFI 1,000 MG/10 ML SYRINGE IVP SCH (12:52)
[2017-12-20] MEDS: Acetaminophen-Codeine 300-30mg TAB PO PRN (14:31)
--- NOTE | 2017-12-20 14:59 | P.HPIM ---
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 for chronic care, comes in with change in mental status and acute and chronic confusion. Patient has intermittent episodes of confusion and possible underlying dementia but was found to be more confused, not eating or drinking for the past 2 days. Patient found to be hypoxic below 88% stop she denied any symptoms of chest pain, shortness breath, abdominal pain, urinary retention or frequency. Patient had multiple falls in the past month and fractured her wrist twice and her shoulder, currently in cast. She was seen by Dr. Barroso who decided to treat her conservatively due to age and her comorbidities. Patient was on [place] every 4 hours along with Xanax for anxiety. Blood pressure in the ER was 80/42. Afebrile not tachypneic or tachycardic. Labs done includes a CBC with a hemoglobin of 9.1, no leukocytosis. Creatinine increased from 1.1-1.47 with increased in BUN from 28-50. Urinalysis was positive for WBC more than 182, hyaline cast 167 suggestive of dehydration urine infection. Patient initiated on ceftriaxone for UTI. Initiated on IV fluids for dehydration and possible confusion secondary to multiple medication. Patient will be started on Tylenol 3 for pain control and [place] will be reduced to see if improves the mental status of the patient. Sepsis ruled out Review of Systems Constitutional: Denies chills, Denies fever, endorses lethargic and weakness, poor appetite and weight loss D Eyes: denies decreased vision, denies diplopia, denies discharge, denies pain Ears: deny: decreased hearing Ears, nose, mouth and throat: Denies dental pain, Denies headache, Denies nasal discharge, Denies nose pain Cardiovascular: Denies chest pain, Denies decreased exercise tolerance, Denies edema, Denies high blood pressure, Denies irregular heart beat, Denies palpitations, Denies paroxysmal nocturnal dyspnea, Denies rapid heart beat, Denies shortness of breath Respiratory: Denies congestion, Denies cough, Denies cough with sputum, Denies dyspnea, Denies home oxygen, Denies wheezing Gastrointestinal: Denies abdominal pain, Denies change in bowel habits, Denies coffee ground emesis, Denies early satiety, Denies excessive gas, Denies heartburn, Denies hematemesis, Denies hematochezia, Denies loss of appetite, Denies nausea, Denies vomiting Genitourinary: Denies dysuria, Denies flank pain, Denies kidney stones, Denies menorrhagia, Denies urgency, Denies urinary frequency Musculoskeletal: Patient is bedbound since her fall as she is unable to sit by herself and needs assistance to feed her as well Integumentary: Denies rash, Denies wounds, Denies brittle nails, Denies change in hair/nails, Denies darkening of skin Neurological: Denies balance difficulties, Denies change in speech, Denies double vision, Denies gait dysfunction, Denies loss of vision, Denies motor disturbance, Denies numbness, Denies paralysis, Denies paresthesias, Denies seizures Psychiatric: Denies anxiety, Denies depression Endocrine: Denies excessive sweating, Denies excessive thirst, Denies high blood sugars, Denies palpitations Hematologic/Lymphatic: Denies easy bruising, Denies lymphadenopathy Past Medical History Past Medical History: Coronary Artery Disease (CAD), Chest Pain / Angina, Heart Failure, COPD, CVA/TIA, GERD/Reflux, Hyperlipidemia, Hypertension, Myocardial Infarction ([place]), Pneumonia, Sleep Apnea/CPAP/BIPAP, Thyroid Disorder, Vascular Disorder Additional Past Medical History / Comment(s): CVA 2010 POSTMENOPAUSAL GLASSES UPPER DENTURES SHORTNESS OF BREATH ddd, vit d-deficiency.ischemic cardiomyopathy , hypothyroidism constipation CK D vitamin D deficiency obstructive sleep apnea noncompliant to medication ischemic cardiomyopathy LVH TIA 2010 CVA Last Myocardial Infarction Date:: 2011? 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 Past Anesthesia/Blood Transfusion Reactions: No Reported Reaction Past Psychological History: Anxiety Additional Psychological History / Comment(s): started smoking at age 18, smoked 1 ppd, quit 2008, has rare drink. Smoking Status: Former smoker Past Alcohol Use History: Rare Past Drug Use History: None Reported - Past Family History Father Family Medical History: Cancer, Osteoarthritis (OA) Additional Family Medical History / Comment(s): at age 62 throat ca Mother Family Medical History: Coronary Artery Disease (CAD), Myocardial Infarction (UT ) Additional Family Medical History / Comment(s): mom at age 92 mi Brother(s) Family Medical History: CVA/TIA Sister(s) Family Medical History: No Reported History Daughter(s) Family Medical History: Vascular Disorder Medications and Allergies Home Medications Medication Instructions Recorded Confirmed Type Aspirin 81 mg PO DAILY@89901/30/14 12/19/17 History ALPRAZolam [Xanax] 0.5 mg PO HS@209912/03/14 12/19/17 History Bisacodyl [Dulcolax] 20 mg PO HS@209912/03/14 12/19/17 History Citalopram Hydrobromide [CeleXA] 20 mg PO DAILY@89912/03/14 12/19/17 History Ipratropium-Albuterol Nebulize 3 ml INHALATION RT-QID ampul.neb 12/08/14 Rx [Duoneb 0.5 mg-3 mg/3 ml Soln] Atorvastatin [Lipitor] 40 mg PO HS@209904/24/15 12/19/17 History Cholecalciferol [Vitamin D3] 1,000 unit PO DAILY@89904/24/15 12/19/17 History Isosorbide Mononitrate ER [Imdur] 30 mg PO DAILY@89904/24/15 12/19/17 History Levothyroxine Sodium [Synthroid] 50 mcg PO PERALTA@89904/24/15 12/19/17 History Acetaminophen [Tylenol] 650 mg PO Q4H PRN 09/24/17 12/19/17 History Ferrous Sulfate [Iron] 325 mg PO DAILY@89909/24/17 12/19/17 History Furosemide [Lasix] 40 mg PO MOWEFR@89909/24/17 12/19/17 History Gabapentin [Neurontin] 600 mg PO HS@209909/24/17 12/19/17 History Ipratropium-Albuterol Nebulize 3 ml INHALATION RT-Q4H PRN 09/24/17 12/19/17 History [Duoneb 0.5 mg-3 mg/3 ml Soln] Levothyroxine Sodium [Synthroid] 100 mcg PO MOTUWETHFRSA@0600 09/24/17 12/19/17 History Losartan Potassium [Cozaar] 100 mg PO DAILY@0900 09/24/17 12/19/17 History Magnesium Hydroxide [Milk of 2,400 mg PO HS PRN 09/24/17 12/19/17 History Magnesia] Memantine HCl [Namenda Xr] 14 mg PO DAILY@0900 09/24/17 12/19/17 History Methyl Salicylate/Menthol 1 patch TOPICAL DAILY@0900 09/24/17 12/19/17 History [Salonpas Patch] Metoprolol Tartrate [Lopressor] 25 mg PO BID@0900,2100 09/24/17 12/19/17 History Nitroglycerin Sl Tabs [Nitrostat] 0.4 mg SUBLINGUAL Q5M PRN 09/24/17 12/19/17 History Omeprazole [PriLOSEC] 20 mg PO DAILY@0900 09/24/17 12/19/17 History Polyethylene Glycol 3350 [Miralax] 17 gm PO DAILY@0900 09/24/17 12/19/17 History Vit C/E/Zn/Coppr/Lutein/Zeaxan 1 cap PO DAILY@0900 09/24/17 12/19/17 History [Preservision Areds 2 Softgel] amLODIPine [Norvasc] 5 mg PO HS@209909/24/17 12/19/17 History Dimethicone/Zinc Oxide [Inzo Zinc 1 applic TOPICAL Q12H 12/19/17 12/19/17 History Oxide Barrier Cream] HYDROcodone/APAP 7.5-325MG [[place]ixon 1 tab PO QID@00,06,,18 PRN 12/19/17 History 7.5-325] Potassium Chloride ER [K-Dur 10] 10 meq PO MOWEFR@0900 12/19/17 12/19/17 History Allergies Allergy/AdvReac Type Severity Reaction Status Date / Time zolpidem tartrate Allergy Unknown Confusion Verified 12/19/17 15:43 [From Ambien] celecoxib [From Celebrex] Allergy Rash/Hives Verified 12/19/17 15:43 estrogens, conjugated Allergy Unknown Verified 12/19/17 15:43 [From Premarin] valdecoxib Allergy Unknown Verified 12/19/17 15:43 Physical Exam Vitals: Vital Signs Temp Pulse Pulse Resp BP BP Pulse Ox 12/20/17 11:36 82 12/20/17 11:26 82 12/20/17 07:31 74 12/20/17 07:24 74 12/20/17 07:00 100.6 F H 82 18 144/56 92 L 12/20/17 00:00 74 16 12/19/17 23:21 98.2 F 74 17 129/56 95 12/19/17 21:48 75 18 119/58 91 L 12/19/17 20:57 99.2 F 74 18 141/61 91 L 12/19/17 20:12 74 18 125/57 90 L 12/19/17 19:04 72 18 128/58 90 L 12/19/17 18:25 67 18 95/48 92 L 12/19/17 17:47 70 18 101/70 89 L 12/19/17 17:01 80/42 12/19/17 15:24 97.6 F 64 18 90/52 88 L Intake and Output 12/19/17 12/20/17 12/20/17 22:59 06:59 14:59 Intake Total 120 Balance 120 Intake: Oral 120 Other: Voiding Method Toilet Bedside Commode Diaper Incontinent # Voids 1 1 Weight 62 kg 62 kg - Constitutional General appearance: cooperative, no acute distress, a resting comfortably in bed - EENT Eyes: anicteric sclerae, PERRLA, normal appearance ENT: hearing grossly normal - Neck Neck: no lymphadenopathy, normal ROM, no other, no rigidity, no stridor, no thyromegaly - Respiratory Respiratory: bilateral: CTA, diminished air entry at the bases with fine crackles - Cardiovascular Rhythm: regular Heart sounds: normal: S1, S2 Abnormal Heart Sounds: 2+ systolic murmur, no diastolic murmur, no rub, no S3 Gallop, no S4 Gallop, no click, no other - Gastrointestinal General gastrointestinal: normal bowel sounds, soft, nontender - Integumentary Integumentary: no rash trace pedal edema present - Neurologic Neurologic: CNII-XII intact, generalized weakness, no sensory deficit - Musculoskeletal Musculoskeletal: Left arm in cast with some edema of the fingers , strength equal bilaterally - Psychiatric Psychiatric: A&O x's 1, appropriate affect Results CBC & Chem 7: 12/19/17 15:48 12/19/17 15:48 Labs: Abnormal Lab Results - Last 24 Hours (Table) 12/19/17 12/19/17 12/19/17 Range/Units 15:18 15:48 15:48 RBC 2.95 L (3.80-5.40) m/uL Hgb 9.1 L (11.4-16.0) gm/dL Hct 28.3 L (34.0-46.0) % Neutrophils # (Manual) 8.57 H (1.3-7.7) k/uL Sodium (137-145) mmol/L BUN (7-17) mg/dL Creatinine (0.52-1.04) mg/dL POC Glucose (mg/dL) 104 H (75-99) mg/dL Total Creatine Kinase 259 H (30-135) U/L CK-MB (CK-2) 7.0 H* (0.0-2.4) ng/mL Total Protein (6.3-8.2) g/dL Albumin (3.5-5.0) g/dL Urine Appearance (Clear) Urine Protein (Negative) Ur Leukocyte Esterase (Negative) Urine RBC (0-5) /hpf Urine WBC (0-5) /hpf Ur Squamous Epith Cells (0-4) /hpf Amorphous Sediment (None) /hpf Urine Bacteria (None) /hpf Hyaline Casts (0-2) /lpf Urine Mucus (None) /hpf 12/19/17 12/19/17 Range/Units 15:48 16:46 RBC (3.80-5.40) m/uL Hgb (11.4-16.0) gm/dL Hct (34.0-46.0) % Neutrophils # (Manual) (1.3-7.7) k/uL Sodium 135 L (137-145) mmol/L BUN 50 H (7-17) mg/dL Creatinine 1.47 H (0.52-1.04) mg/dL POC Glucose (mg/dL) (75-99) mg/dL Total Creatine Kinase (30-135) U/L CK-MB (CK-2) (0.0-2.4) ng/mL Total Protein 5.4 L (6.3-8.2) g/dL Albumin 2.9 L (3.5-5.0) g/dL Urine Appearance Turbid H (Clear) Urine Protein Trace H (Negative) Ur Leukocyte Esterase Large H (Negative) Urine RBC 24 H (0-5) /hpf Urine WBC >182 H (0-5) /hpf Ur Squamous Epith Cells 68 H (0-4) /hpf Amorphous Sediment Occasional H (None) /hpf Urine Bacteria Occasional H (None) /hpf Hyaline Casts 167 H (0-2) /lpf Urine Mucus Rare H (None) /hpf Thrombosis Risk Factor Assmnt - DVT/VTE Prophylaxis DVT/VTE Prophylaxis: Pharmacologic Prophylaxis ordered - Choose All That Apply Any of the Below Risk Factors Present?: Yes Each Factor Represents 1 point: Abnormal pulmonary function (COPD), Heart failure (<1month), History of prior major surgery (<1month) Other Risk Factors: Yes Other congenital or acquired thrombophilia - If yes, enter type in comment: No Thrombosis Risk Factor Assessment Total Risk Factor Score: 3 Thrombosis Risk Factor Assessment Level: Moderate Risk Assessment and Plan Plan: 1. Acute metabolic encephalopathy likely secondary to dehydration, polypharmacy , urinary tract infection. We'll continue IV fluids at 75 mL per hour today. Reduce patient is nonfocal. Initiated on Tylenol 3 for pain control along with Dixon every 12 hours if need be continue Rocephin 1 g every 24 hours for the urinary tract infection. Patient does have baseline dementia and has ongoing confusion for a few years though not as baseline at this point. Continue to maintain 14 mg daily 2. Urinary tract infection, sepsis ruled out. Continue Rocephin 1 g 24 hours daily. Initiated on 12/19 3. Coronary artery disease with ischemic cardiomyopathy initiated on aspirin 81 mg once every day, Lipitor 40 mg orally once every day, Imdur 15 mg orally once every day, metoprolol 25 mg orally twice every day, we will continue Lasix 40 mg Monday and Monday 4. Hypertension and hypertensive cardiovascular disease we will continue patient with losartan 100 mg once every day metoprolol 25 mg orally twice every day. 5. Hyperlipidemia. Patient on Lipitor 40 mg orally once every day. 6. Acute kidney injury on Chronic kidney disease stage 3. avoid nephrotoxic agent. Continue normal saline at 75 mL per hour. Repeat CMP tomorrow 7. Vascular dementia continue patient on Namenda XR 7 milligrams orally once every day. 8. Hypothyroidism continue the patient on Synthroid 100 g exes a week and 50 mg on Monday 9. Vitamin D deficiency continue patient on vitamin D3 1000 international units once every day. 10. Constipation continue MiraLAX, Dulcolax as needed 11. Major depressive disorder continue patient on Celexa 20 mg orally once every day. 12. Anxiety disorder continue patient on Celexa and Xanax. 13. Anemia of chronic inflammatory disorder. Stable. 14. DVT prophylaxis Lovenox 40 mg subcutaneously every 24 hours. 15. GI prophylaxis Pepcid 20 mg twice daily 16. Patient may need to be in the hospital 1-2 inpatient
[2017-12-20] MEDS ORDERED: ALPRAZolam 0.5 MG TAB PO SCH (21:00)
[2017-12-20] MEDS: ATORVASTATIN 40 MG TAB PO SCH (21:41)
[2017-12-20] MEDS: amLODIPine 5 MG TAB PO SCH (21:42)
[2017-12-20] MEDS: GABAPENTIN 300 MG CAP PO SCH (21:43)
[2017-12-20] MEDS: FAMOTIDINE 20 MG TAB PO SCH (21:45)
[2017-12-20] MEDS: ALPRAZolam 0.25 MG TAB PO SCH (21:46)
[2017-12-20] MEDS: BISACODYL 5 MG TABLET.DR PO SCH (22:35)
[2017-12-21 04:32] LABS: ALT 32 U/L (9-52); AST 49 U/L (14-36); Albumin 2.7 g/dL (3.5-5.0); Alkaline Phosphatase 67 U/L (38-126); Anion Gap 11 mmol/L; Blood Urea Nitrogen 21 mg/dL (7-17); Calcium 8.6 mg/dL (8.4-10.2); Carbon Dioxide 23 mmol/L (22-30); Chloride 109 mmol/L (98-107); Glucose 95 mg/dL (74-99); Potassium 3.7 mmol/L (3.5-5.1); Sodium 143 mmol/L (137-145); Total Bilirubin 0.4 mg/dL (0.2-1.3); Total Protein 5.1 g/dL (6.3-8.2)
[2017-12-21 04:42] LABS: HCT 27.2 % (34.0-46.0); HGB 9.3 gm/dL (11.4-16.0); MCH 31.8 pg (25.0-35.0); MCHC 34.1 g/dL (31.0-37.0); MCV 93.2 fL (80.0-100.0); Platelet Count 352 k/uL (150-450); RBC 2.92 m/uL (3.80-5.40); RDW 12.9 % (11.5-15.5); WBC 9.2 k/uL (3.8-10.6)
[2017-12-21] MEDS: LEVOTHYROXINE 100 MCG TAB PO SCH (05:25)
[2017-12-21 05:31] LABS: Eosinophils # (M) 0.18 k/uL (0-0.7); Lymphocytes # (M) 1.01 k/uL (1.0-4.8); Monocytes # (M) 0.55 k/uL (0-1.0); Neutrophils # (M) 7.45 k/uL (1.3-7.7); Neutrophils % (M) 81 %; Nucleated Red Blood Cells 0 /100 WBC (0-0); Total Cells Counted 100
[2017-12-21] MEDS: IPRATROPIUM-ALBUTEROL 3 ML NEB INHALATION SCH ×4 (08:15→20:06)
[2017-12-21] MEDS: METHYL SALICYLATE/MENTHOL CREAM 5 OZ TOPICAL SCH (08:28)
[2017-12-21] MEDS: POLYETHYLENE GLYCOL 3350 17 GM POWD.PACK PO SCH (08:29)
[2017-12-21] MEDS: cefTRIAXone IN SWFI 1,000 MG/10 ML SYRINGE IVP SCH (08:29)
[2017-12-21] MEDS: CHOLECALCIFEROL 1,000 UNIT TAB PO SCH (08:31)
[2017-12-21] MEDS: ASPIRIN 81 MG PO SCH (08:31)
[2017-12-21] MEDS: FERROUS SULFATE 325 MG TAB PO SCH (08:31)
[2017-12-21] MEDS: LOSARTAN 50 MG TAB PO SCH (08:31)
[2017-12-21] MEDS: ISOSORBIDE MONONITRATE ER 30 MG TAB.ER.24H PO SCH (08:31)
[2017-12-21] MEDS: CITALOPRAM HYDROBROMIDE 20 MG TAB PO SCH (08:31)
[2017-12-21] MEDS: FAMOTIDINE 20 MG TAB PO SCH ×2 (08:31→20:37)
[2017-12-21] MEDS: VIT A,C & E-LUTEIN-MINERALS 1 EACH TAB PO SCH (08:32)
[2017-12-21] MEDS: MEMANTINE 5 MG TAB PO SCH ×2 (08:32→20:37)
[2017-12-21] MEDS: METOPROLOL TARTRATE 25 MG TAB PO SCH ×2 (08:32→20:37)
[2017-12-21] MEDS: ENOXAPARIN 40 MG/0.4 ML SYRINGE SQ SCH (08:43)
[2017-12-21] MEDS: ZINC OXIDE 20% OINT 28.4 GM TUBE TOPICAL SCH ×2 (08:44→22:20)
--- NOTE | 2017-12-21 15:01 | P.PN ---
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 Patient has intermittent episodes of confusion and possible underlying dementia but was found to be more confused, not eating or drinking for the past 2 days. Patient found to be hypoxic below 88% stop she denied any symptoms of chest pain, shortness breath, abdominal pain, urinary retention or frequency. Patient had multiple falls in the past month and fractured her wrist twice and her shoulder, currently in cast. She was seen by Dr. Barroso who decided to treat her conservatively due to age and her comorbidities. Patient was on [place] every 4 hours along with Xanax for anxiety. Blood pressure in the ER was 80/42. Afebrile not tachypneic or tachycardic. Labs done includes a CBC with a hemoglobin of 9.1, no leukocytosis. Creatinine increased from 1.1-1.47 with increased in BUN from 28-50. Urinalysis was positive for WBC more than 182, hyaline cast 167 suggestive of dehydration urine infection. Patient initiated on ceftriaxone for UTI. Initiated on IV fluids for dehydration and possible confusion secondary to multiple medication. Patient will be started on Tylenol 3 for pain control and [place] will be reduced to see if improves the mental status of the patient. Sepsis ruled out 12/21: Patient is noted to have continued mild confusion. She is aware of the year but thinks it is April. Patient will be started on Remeron and Celexa decreased to 10 mg. Urine culture was not obtained on admission and will be requested now. IV fluids will be discontinued. Patient denies any pain issues at this time. Objective - Vital Signs Vital signs: Vital Signs Temp 99.2 F 12/21/17 07:21 Pulse 80 12/21/17 08:25 Resp 20 12/21/17 09:19 BP 184/66 12/21/17 07:21 Pulse Ox 94 L 12/20/17 22:13 Intake & Output 12/20/17 12/21/17 12/21/17 18:59 06:59 18:59 Intake Total 120 Balance 120 Intake: Oral 120 Other: Voiding Method Bedside Commode Bedside Commode Bedside Commode Diaper Diaper Diaper Incontinent Incontinent Incontinent # Voids 1 2 # Bowel Movements 1 1 - Exam General appearance: cooperative, no acute distress, a resting comfortably in bed - EENT Eyes: anicteric sclerae, PERRLA, normal appearance ENT: hearing grossly normal - Neck Neck: no lymphadenopathy, normal ROM, no other, no rigidity, no stridor, no thyromegaly - Respiratory Respiratory: bilateral: CTA, diminished air entry at the bases with fine crackles - Cardiovascular Rhythm: regular Heart sounds: normal: S1, S2 Abnormal Heart Sounds: 2+ systolic murmur, no diastolic murmur, no rub, no S3 Gallop, no S4 Gallop, no click, no other - Gastrointestinal General gastrointestinal: normal bowel sounds, soft, nontender - Integumentary Integumentary: no rash trace pedal edema present - Neurologic Neurologic: CNII-XII intact, generalized weakness, no sensory deficit - Musculoskeletal Musculoskeletal: Left arm in cast with some edema of the fingers , strength equal bilaterally - Psychiatric Psychiatric: A&O x's 1, appropriate affect - Labs CBC & Chem 7: 12/21/17 03:55 12/21/17 03:55 Labs: Abnormal Lab Results - Last 24 Hours (Table) 12/21/17 12/21/17 Range/Units 03:55 03:55 RBC 2.92 L (3.80-5.40) m/uL Hgb 9.3 L (11.4-16.0) gm/dL Hct 27.2 L (34.0-46.0) % Chloride 109 H (98-107) mmol/L BUN 21 H (7-17) mg/dL AST 49 H (14-36) U/L Total Protein 5.1 L (6.3-8.2) g/dL Albumin 2.7 L (3.5-5.0) g/dL Microbiology - Last 24 Hours (Table) 12/19/17 20:50 Blood Culture - Preliminary Blood No Growth after 24 hours Assessment and Plan Plan: 1. Acute metabolic encephalopathy likely secondary to dehydration, polypharmacy , urinary tract infection. Discontinue IV fluids. Initiated on Tylenol 3 for pain control along with [place] every 12 hours if need be continue Rocephin 1 g every 24 hours for the urinary tract infection. Patient does have baseline dementia and has ongoing confusion for a few years though not as baseline at this point. Continue Namenda 14 mg daily 2. Urinary tract infection, sepsis ruled out. Continue Rocephin 1 g 24 hours daily. Initiated on 12/19. Urine culture requested 3. Coronary artery disease with ischemic cardiomyopathy initiated on aspirin 81 mg once every day, Lipitor 40 mg orally once every day, Imdur 15 mg orally once every day, metoprolol 25 mg orally twice every day, we will continue Lasix 40 mg Monday and Monday 4. Hypertension and hypertensive cardiovascular disease we will continue patient with losartan 100 mg once every day metoprolol 25 mg orally twice every day. 5. Hyperlipidemia. Patient on Lipitor 40 mg orally once every day. 6. Acute kidney injury on Chronic kidney disease stage 3. avoid nephrotoxic agent. Continue normal saline at 75 mL per hour. Repeat CMP tomorrow 7. Vascular dementia continue patient on Namenda XR 7 milligrams orally once every day. 8. Hypothyroidism continue the patient on Synthroid 100 g exes a week and 50 mg on Monday 9. Vitamin D deficiency continue patient on vitamin D3 1000 international units once every day. 10. Constipation continue MiraLAX, Dulcolax as needed 11. Major depressive disorder continue patient on Celexa 20 mg orally once every day. Remeron will be started and Celexa decreased to 10 mg daily 12. Anxiety disorder continue patient on Celexa and Xanax. Remeron added. 13. Anemia of chronic inflammatory disorder. Stable. 14. DVT prophylaxis Lovenox 40 mg subcutaneously every 24 hours. 15. GI prophylaxis Pepcid 20 mg twice daily Discharge plan: Return to [facility] Impression and plan of care have been directed as dictated by the signing physician. Madeleine Lynch nurse practitioner acting as scribe for signing physician.
[2017-12-21] MEDS ORDERED: MIRTAZAPINE 15 MG TAB PO SCH (18:00)
[2017-12-21] MEDS: GABAPENTIN 300 MG CAP PO SCH (20:37)
[2017-12-21] MEDS: amLODIPine 5 MG TAB PO SCH (20:37)
[2017-12-21] MEDS: ALPRAZolam 0.25 MG TAB PO SCH (20:38)
[2017-12-21] MEDS: BISACODYL 5 MG TABLET.DR PO SCH (20:38)
[2017-12-21] MEDS: ATORVASTATIN 40 MG TAB PO SCH (20:38)
[2017-12-22] MEDS: LEVOTHYROXINE 100 MCG TAB PO SCH (06:00)
[2017-12-22] MEDS: Acetaminophen-Codeine 300-30mg TAB PO PRN (06:07)
[2017-12-22 07:27] VITALS: RESP 16; TEMP 98.3
[2017-12-22] MEDS: ASPIRIN 81 MG PO SCH (08:14)
[2017-12-22] MEDS: ENOXAPARIN 40 MG/0.4 ML SYRINGE SQ SCH (08:16)
[2017-12-22] MEDS: CHOLECALCIFEROL 1,000 UNIT TAB PO SCH (08:16)
[2017-12-22] MEDS: FAMOTIDINE 20 MG TAB PO SCH (08:17)
[2017-12-22] MEDS: FERROUS SULFATE 325 MG TAB PO SCH (08:17)
[2017-12-22] MEDS: ISOSORBIDE MONONITRATE ER 30 MG TAB.ER.24H PO SCH (08:17)
[2017-12-22] MEDS: LOSARTAN 50 MG TAB PO SCH (08:18)
[2017-12-22] MEDS: MEMANTINE 5 MG TAB PO SCH (08:19)
[2017-12-22] MEDS: METOPROLOL TARTRATE 25 MG TAB PO SCH (08:19)
[2017-12-22] MEDS: POTASSIUM CHLORIDE ER 10 MEQ TAB.ER.PRT PO SCH (08:19)
[2017-12-22] MEDS: METHYL SALICYLATE/MENTHOL CREAM 5 OZ TOPICAL SCH (08:20)
[2017-12-22] MEDS: ZINC OXIDE 20% OINT 28.4 GM TUBE TOPICAL SCH (08:20)
[2017-12-22] MEDS: VIT A,C & E-LUTEIN-MINERALS 1 EACH TAB PO SCH (08:20)
[2017-12-22] MEDS: POLYETHYLENE GLYCOL 3350 17 GM POWD.PACK PO SCH (08:21)
[2017-12-22] MEDS: IPRATROPIUM-ALBUTEROL 3 ML NEB INHALATION SCH ×2 (08:31→12:14)
[2017-12-22] MEDS: cefTRIAXone IN SWFI 1,000 MG/10 ML SYRINGE IVP SCH (08:46)
[2017-12-22] MEDS ORDERED: CITALOPRAM HYDROBROMIDE 10 MG TAB PO SCH (09:00)
--- NOTE | 2017-12-22 09:17 | P.DS ---
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 Patient has intermittent episodes of confusion and possible underlying dementia but was found to be more confused, not eating or drinking for the past 2 days. Patient found to be hypoxic below 88% stop she denied any symptoms of chest pain, shortness breath, abdominal pain, urinary retention or frequency. Patient had multiple falls in the past month and fractured her wrist twice and her shoulder, currently in cast. She was seen by Dr. Barroso who decided to treat her conservatively due to age and her comorbidities. Patient was on [place] every 4 hours along with Xanax for anxiety. Blood pressure in the ER was 80/42. Afebrile not tachypneic or tachycardic. Labs done includes a CBC with a hemoglobin of 9.1, no leukocytosis. Creatinine increased from 1.1-1.47 with increased in BUN from 28-50. Urinalysis was positive for WBC more than 182, hyaline cast 167 suggestive of dehydration urine infection. Patient initiated on ceftriaxone for UTI. Initiated on IV fluids for dehydration and possible confusion secondary to multiple medication. Patient will be started on Tylenol 3 for pain control and [place] will be reduced to see if improves the mental status of the patient. Sepsis ruled out 12/21: Patient is noted to have continued mild confusion. She is aware of the year but thinks it is April. Patient will be started on Remeron and Celexa decreased to 10 mg. Urine culture was not obtained on admission and will be requested now. IV fluids will be discontinued. Patient denies any pain issues at this time. 12/22: Urine culture remains pending. Patient is seen sitting up in the chair. Mental status is improving. She continues to have pain for which tylenol #3 increased to 2 tabs and tramadol added as well. Patient will be discharged back to [facility] today in stable condition. Discharge Diagnoses: 1. Acute metabolic encephalopathy likely secondary to dehydration, polypharmacy , urinary tract infection. 2. Urinary tract infection, sepsis ruled out. 3. Coronary artery disease with ischemic cardiomyopathy 4. Hypertension and hypertensive cardiovascular disease 5. Hyperlipidemia. 6. Acute kidney injury on Chronic kidney disease stage 3. 7. Vascular dementia 8. Hypothyroidism 9. Vitamin D deficiency 10. Constipation 11. Major depressive disorder, recurrent 12. Anxiety disorder, generalized 13. Anemia of chronic inflammatory disorder. Stable. Discharge plan: Return to [facility] under the care of Dr. Reed Impression and plan of care have been directed as dictated by the signing physician. Madeleine Lynch nurse practitioner acting as scribe for signing physician. Patient Condition at Discharge: Good Plan - Discharge Summary Discharge Rx Participant: No New Discharge Prescriptions: New Acetaminophen-Codeine 300-30mg [Tylenol w/codeine #3] 2 each PO Q4HR PRN #90 tab PRN Reason: Pain Mirtazapine [Remeron] 15 mg PO 1800 tab traMADol HCl [Ultram] 50 mg PO TID PRN #90 tab PRN Reason: Analgesia Cephalexin [Keflex] 250 mg PO Q8HR #15 capsule Continue Aspirin 81 mg PO DAILY@0900 Bisacodyl [Dulcolax] 20 mg PO HS@2100 Ipratropium-Albuterol Nebulize [Duoneb 0.5 mg-3 mg/3 ml Soln] 3 ml INHALATION RT-QID ampul.neb Atorvastatin [Lipitor] 40 mg PO HS@2100 Cholecalciferol [Vitamin D3] 1,000 unit PO DAILY@0900 Isosorbide Mononitrate ER [Imdur] 30 mg PO DAILY@0900 Levothyroxine Sodium [Synthroid] 50 mcg PO PERALTA@0900 amLODIPine [Norvasc] 5 mg PO HS@2100 Vit C/E/Zn/Coppr/Lutein/Zeaxan [Preservision Areds 2 Softgel] 1 cap PO DAILY@ 0900 Polyethylene Glycol 3350 [Miralax] 17 gm PO DAILY@0900 Omeprazole [PriLOSEC] 20 mg PO DAILY@0900 Nitroglycerin Sl Tabs [Nitrostat] 0.4 mg SUBLINGUAL Q5M PRN PRN Reason: Chest Pain Metoprolol Tartrate [Lopressor] 25 mg PO BID@0900,2100 Methyl Salicylate/Menthol [Salonpas Patch] 1 patch TOPICAL DAILY@0900 Memantine HCl [Namenda Xr] 14 mg PO DAILY@0900 Magnesium Hydroxide [Milk of Magnesia] 2,400 mg PO HS PRN PRN Reason: Constipation Losartan Potassium [Cozaar] 100 mg PO DAILY@0900 Levothyroxine Sodium [Synthroid] 100 mcg PO MOTUWETHFRSA@0600 Ipratropium-Albuterol Nebulize [Duoneb 0.5 mg-3 mg/3 ml Soln] 3 ml INHALATION RT-Q4H PRN PRN Reason: Cough Gabapentin [Neurontin] 600 mg PO HS@2099 Furosemide [Lasix] 40 mg PO MOWEFR@09 Ferrous Sulfate [Iron] 325 mg PO DAILY@0900 Acetaminophen [Tylenol] 650 mg PO Q4H PRN PRN Reason: Pain Potassium Chloride ER [K-Dur 10] 10 meq PO MOWEFR@09 Dimethicone/Zinc Oxide [Inzo Zinc Oxide Barrier Cream] 1 applic TOPICAL Q12H Changed ALPRAZolam [Xanax] 0.25 mg PO HS@2099 #0 Citalopram Hydrobromide [CeleXA] 10 mg PO DAILY@0900 #0 Discontinued HYDROcodone/APAP 7.5-325MG [[place] 7.5-325] 1 tab PO QID@00,06,12,18 PRN PRN Reason: Pain Discharge Medication List Aspirin 81 mg PO DAILY@89901/30/14 [History] Bisacodyl [Dulcolax] 20 mg PO HS@209912/03/14 [History] Ipratropium-Albuterol Nebulize [Duoneb 0.5 mg-3 mg/3 ml Soln] 3 ml INHALATION RT -QID ampul.neb 12/08/14 [Rx] Atorvastatin [Lipitor] 40 mg PO HS@209904/24/15 [History] Cholecalciferol [Vitamin D3] 1,000 unit PO DAILY@89904/24/15 [History] Isosorbide Mononitrate ER [Imdur] 30 mg PO DAILY@89904/24/15 [History] Levothyroxine Sodium [Synthroid] 50 mcg PO PERALTA@89904/24/15 [History] Acetaminophen [Tylenol] 650 mg PO Q4H PRN 09/24/17 [History] Ferrous Sulfate [Iron] 325 mg PO DAILY@89909/24/17 [History] Furosemide [Lasix] 40 mg PO MOWEFR@89909/24/17 [History] Gabapentin [Neurontin] 600 mg PO HS@209909/24/17 [History] Ipratropium-Albuterol Nebulize [Duoneb 0.5 mg-3 mg/3 ml Soln] 3 ml INHALATION RT -Q4H PRN 09/24/17 [History] Levothyroxine Sodium [Synthroid] 100 mcg PO MOTUWETHFRSA@59909/24/17 [History] Losartan Potassium [Cozaar] 100 mg PO DAILY@89909/24/17 [History] Magnesium Hydroxide [Milk of Magnesia] 2,400 mg PO HS PRN 09/24/17 [History] Memantine HCl [Namenda Xr] 14 mg PO DAILY@89909/24/17 [History] Methyl Salicylate/Menthol [Salonpas Patch] 1 patch TOPICAL DAILY@89909/24/17 [ History] Metoprolol Tartrate [Lopressor] 25 mg PO BID@899,209909/24/17 [History] Nitroglycerin Sl Tabs [Nitrostat] 0.4 mg SUBLINGUAL Q5M PRN 09/24/17 [History] Omeprazole [PriLOSEC] 20 mg PO DAILY@89909/24/17 [History] Polyethylene Glycol 3350 [Miralax] 17 gm PO DAILY@89909/24/17 [History] Vit C/E/Zn/Coppr/Lutein/Zeaxan [Preservision Areds 2 Softgel] 1 cap PO DAILY@ 89909/24/17 [History] amLODIPine [Norvasc] 5 mg PO HS@209909/24/17 [History] Dimethicone/Zinc Oxide [Inzo Zinc Oxide Barrier Cream] 1 applic TOPICAL Q12H [History] Potassium Chloride ER [K-Dur 10] 10 meq PO MOWEFR@89912/19/17 [History] ALPRAZolam [Xanax] 0.25 mg PO HS@2099 #0 12/22/17 [Rx] Acetaminophen-Codeine 300-30mg [Tylenol w/codeine #3] 2 each PO Q4HR PRN #90 tab 12/22/17 [Rx] Cephalexin [Keflex] 250 mg PO Q8HR #15 capsule 12/22/17 [Rx] Citalopram Hydrobromide [CeleXA] 10 mg PO DAILY@0900 #0 12/22/17 [Rx] Mirtazapine [Remeron] 15 mg PO 1800 tab 12/22/17 [Rx] traMADol HCl [Ultram] 50 mg PO TID PRN #90 tab 12/22/17 [Rx] Follow up Appointment(s)/Referral(s): Amber Reed MD [Primary Care Provider] - 1 Week (at [facility]) Activity/Diet/Wound Care/Special Instructions: Celexa 10mg daily for one week, then 10mg every other day x 1week, then stop. Continue Remeron at same dose. Discharge Disposition: TRANSFER TO SNF/ECF
[2017-12-22 10:14] VITALS: BP 137/66
[2017-12-22 10:16] LABS: HCT 31.1 % (34.0-46.0); HGB 10.2 gm/dL (11.4-16.0); MCH 31.2 pg (25.0-35.0); MCHC 32.8 g/dL (31.0-37.0); Mean Platelet Volume 6.8; Platelet Count 438 k/uL (150-450); RBC 3.28 m/uL (3.80-5.40); RDW 13.3 % (11.5-15.5); WBC 12.6 k/uL (3.8-10.6)
[2017-12-22 10:33] LABS: ALT 34 U/L (9-52); AST 45 U/L (14-36); Albumin 2.8 g/dL (3.5-5.0); Alkaline Phosphatase 60 U/L (38-126); Anion Gap 11 mmol/L; Blood Urea Nitrogen 15 mg/dL (7-17); Calcium 8.7 mg/dL (8.4-10.2); Carbon Dioxide 23 mmol/L (22-30); Chloride 107 mmol/L (98-107); Glucose 145 mg/dL (74-99); Potassium 3.3 mmol/L (3.5-5.1); Sodium 141 mmol/L (137-145); Total Bilirubin 0.4 mg/dL (0.2-1.3); Total Protein 5.3 g/dL (6.3-8.2)
[2017-12-22] MEDS ORDERED: Acetaminophen-Codeine 300-30mg TAB PO PRN (10:34)
[2017-12-22] MEDS ORDERED: traMADol 50 MG TAB PO PRN (10:34)
[2017-12-22 10:40] LABS: Eosinophils # (M) 0.13 k/uL (0-0.7); Lymphocytes # (M) 1.39 k/uL (1.0-4.8); Monocytes # (M) 0.63 k/uL (0-1.0); Neutrophils # (M) 10.46 k/uL (1.3-7.7); Neutrophils % (M) 83 %; Nucleated Red Blood Cells 0 /100 WBC (0-0); Polychromasia Present; Total Cells Counted 100
[2017-12-22 10:46] LABS: Hypersegmented Neutrophils Present
[2017-12-22] MEDS ORDERED: POTASSIUM CHLORIDE ER 20 MEQ TAB.ER PO STA (11:10)
[2017-12-22 12:18] VITALS: PULSE 78
[2017-12-23] MEDS ORDERED: FAMOTIDINE 20 MG TAB PO SCH (09:00)
[2017-12-24] MEDS ORDERED: LEVOTHYROXINE 50 MCG TAB PO SCH (09:00)
--- NOTE | 2018-01-09 11:30 | CDI ---
Last Revision, August 2017 Documentation Clarification Form Date: 01/09/18 From: Alexsandra Carbajal Argenis Peoples, Medical Transcription between 8:30 am & 5 pm [place] Admit Date: 12/19/2017 9:45:00 PM Patient Name: Liliam Allen Visit Number: [id number] Discharge Date: 12/22/17 ATTENTION: The Clinical Documentation Specialists (CDI) and [facility] Coding Staff appreciate your assistance in clarifying documentation. Please respond to the clarification below the line at the bottom and electronically sign. The CDI & [facility] Coding staff will review the response and follow-up if needed. Please note: Queries are made part of the Legal Health Record. If you have any questions, please contact the author of this message via ITS. Dr. Koko Oliver The patient presented due to UTI. She has a history of heart failure but none currently. She is maintained on Lasix 40 mg PO once a day. She has hypertensive cardiovascular disease with CKD stage 3. BNP 3900. No echocardiogram this admission. In your professional opinion, can you please clarify the acuity and type of CHF if known? Chronic Systolic Heart Failure: Chronic Diastolic Heart Failure: Chronic Systolic & Diastolic Heart Failure: Unable to Determine Other, please specify Please continue to document in your progress notes and discharge summary in order to capture severity of illness and risk of mortality. Include clinical findings that support your diagnosis. Unable to determine MTDD
== END 2017-12-22 13:10 | DRG 689 ==
LOC: EC 15:16 → 5MS5E 21:45
PROVIDERS: ADMIT Family Medicine; ATTEND Family Medicine
DX: N39.0 Urinary tract infection, site not specified (principal); G92 Toxic encephalopathy; N17.9 Acute kidney failure, unspecified; F33.9 Major depressive disorder, recurrent, unspecified; I13.0 Hypertensive heart and chronic kidney disease with heart failure and stage 1 through stage 4 chronic kidney disease, or unspecified chronic kidney disease; I50.22 Chronic systolic (congestive) heart failure; E86.0 Dehydration; I25.5 Ischemic cardiomyopathy; F01.50 Vascular dementia, unspecified severity, without behavioral disturbance, psychotic disturbance, mood disturbance, and anxiety; I25.10 Atherosclerotic heart disease of native coronary artery without angina pectoris; J44.9 Chronic obstructive pulmonary disease, unspecified; I08.1 Rheumatic disorders of both mitral and tricuspid valves; K21.9 Gastro-esophageal reflux disease without esophagitis; E78.5 Hyperlipidemia, unspecified; N18.3 Chronic kidney disease, stage 3 (moderate); K59.00 Constipation, unspecified; F41.1 Generalized anxiety disorder; G47.33 Obstructive sleep apnea (adult) (pediatric); D64.9 Anemia, unspecified; E55.9 Vitamin D deficiency, unspecified; I44.0 Atrioventricular block, first degree; E03.9 Hypothyroidism, unspecified; R29.6 Repeated falls; T50.905A Adverse effect of unspecified drugs, medicaments and biological substances, initial encounter; I25.2 Old myocardial infarction; Z79.82 Long term (current) use of aspirin; Z79.890 Hormone replacement therapy; Z79.899 Other long term (current) drug therapy; Z91.14 Patient's other noncompliance with medication regimen; Z87.440 Personal history of urinary (tract) infections; Z90.49 Acquired absence of other specified parts of digestive tract; Z90.710 Acquired absence of both cervix and uterus; Z98.42 Cataract extraction status, left eye; Z98.41 Cataract extraction status, right eye; Z95.828 Presence of other vascular implants and grafts; Z86.73 Personal history of transient ischemic attack (TIA), and cerebral infarction without residual deficits; Z87.01 Personal history of pneumonia (recurrent); Z87.891 Personal history of nicotine dependence; Z88.8 Allergy status to other drugs, medicaments and biological substances; Z80.0 Family history of malignant neoplasm of digestive organs; Z82.61 Family history of arthritis; Z82.49 Family history of ischemic heart disease and other diseases of the circulatory system; Z82.3 Family history of stroke
CPT/HCPCS: 36415; 70450; 71045; 76705; 80053; 81001; 82550; 82553; 83605; 83880; 84484; 85025; 85610; 85730; 87040; 87086; 93005; 94640; 94760; 96361; 96374; 99285